=== PATIENT | female | born 1995 | race Caucasian/White ===

== ENCOUNTER 2019-03-10 09:35 | Inpatient (IN) | payer OTHER, SELFPAY ==
--- NOTE | 2019-03-09 08:28 | PDOC.FPROB ---
FMR OB H&P: HPI - History of Present Illness Chief Complaint: Scheduled repeat LTCS History of Present Illness: 24 yo with prior history of C/S here for scheduled repeat at 39.3w. Primary Care Physician: Aurora Nicholas MD, PGY-3 FMR OB H&P: Current - Care : 2 Para: 1001 Gestational age: 39.3w Due date: 03/14/2019 Dating Criteria: 15.0w sono - OB Labs Blood type: O RH: positive Antibody Screen: negative HIV: negative RPR: negative HepBsAg: negative Rubella: immune Gonorrhea: negative Chlamydia: negative Pap Smear: normal per patient 1 hour gtt: 94 - First Trimester Ultrasound First trimester: 15.0w at outside facility - Anatomy Survey Anatomy survey: WNL, female fetus, posterior placenta FMR OB H&P: History - Past Medical History PMH: None - OB History OB History: Prior C/S x1 in 2016 for "low fluid" in [place] - Surgical History Sx History: Prior C/S x1 for "low fluid" - Social History Social History: Denies t/a/d TB exposure, negative screen at [facility] - Family History Family History: Mother with DM, Grandmother with HTN, DM FMR OB H&P: Medications - Current Home Medications: Medication Instructions Recorded Confirmed Type Vitamin 1 tab PO DAILY 03/09/19 03/10/19 History Allergies/Adverse Reactions: Allergies Allergy/AdvReac Type Severity Reaction Status Date / Time No Known Allergies Allergy Verified 03/10/19 10:46 FMR OB H&P: ROS - Review of Systems General: denies: fever/chills, weight/appetite/sleep changes Eyes: denies: eye pain, vision changes ENT: denies: nasal congestion, rhinorrhea Cardiovascular: denies: chest pain, palpitation Respiratory: denies: cough, congestion, shortness of breath Gastrointestinal: denies: abdominal pain, cramping, nausea, vomiting, diarrhea Genitourinary (Female): denies: dysuria, hematuria Musculoskeletal: denies: stiffness, swelling Integumentary: denies: rash, lesions FMR OB H&P: Physical Exam - Physical Exam General: NAD, awake, alert and oriented HEENT: normocephalic and atraumatic, MMM Neck: supple, trachea midline Chest: non-tender to palpation Heart: RRR, normal S1/S2 General: CTAB, no respiratory distress Abdomen: soft, gravid, non-tender Musculoskeletal: normal gait and station, pulses present Skin: no rash, good tugor Psychiatric: intact recent and remote memory, normal mood and affect FMR OB H&P: A/P - Problem List (1) Term Current Visit: No Status: Acute Code(s): Z34.90 - ENCNTR FOR SUPRVSN OF NORMAL , UNSP, UNSP TRIMESTER (2) History of delivery Current Visit: No Status: Acute Code(s): Z98.891 - HISTORY OF UTERINE SCAR FROM PREVIOUS SURGERY Disposition: 24 yo at 39.3w here for scheduled repeat C/S. Declined TOLAC. 1. Prior C/S 2. Short interpregnancy interval 3. Travel to [place] - TB screen neg at HD 4. H/o chicken pox 5. Reports normal pap last year Apr 2018 Will proceed with C/S Discussion: Date/Time: 03/09/19826 This H&P was discussed with [] and [] who agree with the above documentation and plan.
[~2019-03-10 09:35] MED LIST: Bicitra 30 ML UDCUP PO SCH; CEFAZOLIN 2 GM in Premix Bag 1 BAG IVPB SCH; Ondansetron PF 4 MG/2 ML Vial IVP PRN; Promethazine HCl 25 MG/ML VIAL IM PRN; hydrALAZINE 20 MG/ML VIAL SLOW IVP PRN
[2019-03-10 10:37] LABS: Hemoglobin 13.2 g/dL (12.0-16.0); Mean Corpuscular HGB CONC 33.5 g/dL (32.0-36.0); Mean Corpuscular Hemoglobin 31.7 pg (27.0-31.0); Mean Corpuscular Volume 94.8 fL (78.0-98.0); Mean Platelet Volume 8.9 fL (7.4-10.4); Platelet Count 147 thou/uL (130-400); RBC Distribution Width 12.8 % (11.5-14.5); Red Blood Cell (RBC) Count 4.16 mill/uL (4.20-5.40); White Blood Cell (WBC) Count 8.8 thou/uL (4.8-10.8)
[2019-03-10 10:41] VITALS: BMI 32.9
[2019-03-10] MEDS ORDERED: Ketorolac Tromethamine 30 MG/ML VIAL ONE ×2 (11:05→13:43)
[2019-03-10] MEDS ORDERED: Ondansetron PF 4 MG/2 ML Vial ONE ×2 (11:05→12:03)
[2019-03-10] MEDS ORDERED: ePHEDrine 50 MG/ML VIAL ONE (11:05)
[2019-03-10 11:17] LABS: HBSAg Index 0.26 S/CO (0-0.99); Hep B Surf Ag Non-Reactive S/CO (NonReactive); Syphilis Antibody Nonreactive (Nonreactive); Syphilis Antibody Index 0.04 S/CO (<1.00 Non-Reactive)
[2019-03-10] MEDS ORDERED: CEFAZOLIN 2 GM in Premix Bag 1 BAG IVPB SCH (11:45)
[2019-03-10] MEDS ORDERED: Oxytocin 10 UNITS/ML VIAL ONE (12:03)
[2019-03-10] MEDS ORDERED: MORPHINE 5 MG/10 ML PF VIAL ONE (12:03)
[2019-03-10] MEDS ORDERED: Phenylephrine HCL 10 MG/ML VIAL ONE (12:03)
--- NOTE | 2019-03-10 12:28 | PDOC.EVN ---
Event Note - Event Note Event Note: Reviewed H&P and seen with Dr. Nicholas. Previous x 1 here for scheduled repeat. Discussed risk of repeat (Dr. Nicholas) and plan to proceed.
[2019-03-10] MEDS ORDERED: ePHEDrine/0.9% NaCl/PF SYRINGE 50 mg/10 ml ONE (12:30)
[2019-03-10] MEDS ORDERED: NS / Oxytocin 40 units/1000ml 1,000 ML ONE (14:59)
--- NOTE | 2019-03-10 15:05 | PDOC.OPDEL ---
OB Operative/Delivery Note Delivery Dr/Surgeon: Marleni Pre-Delivery Diagnosis: scheduled section Procedure/Post Delivery Dx: repeat low transverse CS Weeks gestation: 39 (.3) Anesthesia: epidural - Findings A Sex: female - 1 min: 8 - 5 min: 9 - Additional Findings/Plan Placenta delivered: manual removal findings: low transverse hysterotomy without extension Estimated blood loss: 1215 QBL Compilations/Other Findings: Attending Surgeon: Dr. James Carrillo Procedure: Repeat low transverse caesarean section Preoperative Diagnosis: 1)Term intrauterine 2)Previous Postoperative Diagnosis: 1)same as above Anesthesia: spinal Indications: The patient is a 24 year old female at 39.3 weeks gestation who presents for a repeat scheduled . Procedure in Detail: After risks, benefits, and alternatives were explained to the patient, she gave informed consent. Pre-operative antibiotics included Cefazolin 2 gram IV. The patient was taken to the operating room and spinal anesthesia was initiated. She was placed in the supine position with a left tilt and prepped and draped in usual sterile fashion. A Pfannenstiel incision was made with a scalpel and carried down to the level of the fascia which was sharply nicked. The fascial cut was extended bilaterally with Wharton sissors. The inferior and superior edges of the cut fascial edges were elevated with Shawna clamps and the underlying rectus muscles were sharply and bluntly dissected free. The recti were divided bluntly and retracted manually. The peritoneum was entered bluntly and retracted manually. Bladder blade was placed. A low transverse score was made with the scalpel and the uterus was entered in the midline bluntly. Clear fluid was seen. The hysterotomy was extended manually. The was noted to be vertex and delivered by fundal pressure. Mouth and nares were bulb suctioned. Cord clamped and cut and grossly normal male/female was handed to waiting nurse. Cord blood was obtained. Placenta was manually extracted, found to be intact with 3 vessel cord and discarded. The uterus was externalized and the endometrium was curetted with a dry lap. The bladder blade was replaced and the uterus was closed with a running locking 0-Vicryl followed by 3 #1 Chromic figure of 8 suture. Following this hemostasis was noted. The abdomen was irrigated with saline and suctioned free of clots. The uterus was internalized and the hysterotomy was again noted to be hemostatic. The fascia was closed with a running non-locking PDS suture. The subcutaneous tissue was irrigated and there were no bleeders. The skin was approximated with running subcuticular 3.0 on a raul needle and dermabond was placed. All counts were correct. The patient tolerated the procedure well and was taken to the recovery room in stable condition. QBL: 1215 ml Complications: None Specimens: Cord blood sent to lab for blood type Findings: Grossly normal female infant with Apgars of 8 and 9. Grossly normal placenta with 3 vessel cord discarded. Drains: Rangel to gravity draining clear urine Addendum - Attending - Attending Attestation Date/Time: 03/11/19 1335 I was present and scrubbed for the entire case. Wily-O used and ensured to be free of any omentum or bowel. 1-Monocryl for hysterotomy with several figure of 8's for hemostasis. Peritoneum closed with 3-0 vicryl and muscle reapproximated with mattress suture. Subcutaneous closure was interrupted with plain gut and skin with 4-0 monocryl in a subcuticular fashion.
[2019-03-10] MEDS ORDERED: diphenhydrAMINE 25 MG CAP PO PRN (15:59)
[2019-03-10] MEDS ORDERED: Adacel (T-DAP) 0.5 ML SYRINGE IM ONE (15:59)
[2019-03-10] MEDS ORDERED: Methylergonovine 0.2 MG TAB PO PRN (15:59)
[2019-03-10] MEDS ORDERED: NS / Oxytocin 40 units/1000ml 1,000 ML IV SCH (15:59)
[2019-03-10] MEDS ORDERED: Acetaminophen/Codeine 30-300mg Tablet PO PRN (15:59)
[2019-03-10] MEDS ORDERED: Misoprostol 200 MCG TAB PR PRN (15:59)
[2019-03-10] MEDS ORDERED: Hydrocerin (Eucerin) Cream 120 gm Jar TOP PRN (17:17)
[2019-03-10] MEDS ORDERED: Promethazine HCl 25 MG/ML VIAL IM PRN (17:17)
[2019-03-10] MEDS ORDERED: Naloxone HCl 0.4 mg/ml Vial IV PRN ×3 (17:17)
[2019-03-10] MEDS ORDERED: Ondansetron PF 4 MG/2 ML Vial IVP PRN (17:17)
[2019-03-10] MEDS ORDERED: Promethazine HCl 25 MG SUPP PR PRN (17:17)
[2019-03-10] MEDS ORDERED: NO PO,IM,IV OR SC NARCOTICS FOR 12HR EXCEPT BY ANESTHESIA PO SCH (17:17)
--- NOTE | 2019-03-10 17:36 | PDOC.EVN ---
Event Note - Event Note Event Note: 4 hr post op S: pt resting comfortably in bed, minimal pain, vaginal bleeding less than a period, well. feeling dizzy and nauseous O: NAD AOx3 HEENT NCAT CV RRR ABD NTTP EXT moves all 4 A: s/p rLTCS - routine post op care - zofran for N/V - ADAT
[2019-03-10] MEDS: diphenhydrAMINE 50 MG/ML VIAL IVP PRN (20:16)
[2019-03-10] MEDS: Ketorolac Tromethamine 30 MG/ML VIAL IVP PRN (20:21)
[2019-03-10] MEDS ORDERED: Ibuprofen 800 MG TAB PO SCH (22:00)
[2019-03-11] MEDS: Ketorolac Tromethamine 30 MG/ML VIAL IVP PRN (03:15)
[2019-03-11] MEDS: diphenhydrAMINE 50 MG/ML VIAL IVP PRN (03:21)
[2019-03-11 07:10] LABS: Hemoglobin 10.9 g/dL (12.0-16.0); Mean Corpuscular HGB CONC 33.8 g/dL (32.0-36.0); Mean Corpuscular Hemoglobin 31.9 pg (27.0-31.0); Mean Corpuscular Volume 94.5 fL (78.0-98.0); Mean Platelet Volume 8.8 fL (7.4-10.4); Platelet Count 146 thou/uL (130-400); RBC Distribution Width 12.6 % (11.5-14.5); Red Blood Cell (RBC) Count 3.42 mill/uL (4.20-5.40); White Blood Cell (WBC) Count 10.9 thou/uL (4.8-10.8)
--- NOTE | 2019-03-11 07:10 | PDOC.PP ---
Post Progress Note Post Day #: 1 Subjective: pt resting comfortably in bed with baby, , minimal pain and bleeding. tolerating PO well PO intake tolerated: yes Flatus: no Ambulation: yes Vital Signs (12 hours) Temp Pulse Resp BP Pulse Ox 03/11/19 04:20 97.7 F 58 L 18 108/53 L 03/11/19 00:08 98.2 F 56 L 18 117/53 L 99 03/10/19 19:55 98.2 F 54 L 18 116/53 L 97 Weight Weight 87.09 kg - Physical Examination General: NAD Cardiovascular: RRR Respiratory: clear to auscultation bilaterally Abdominal: + bowel sounds, no distention, appropriately TTP Skin: CS incision dry & intact, no rash Neurological: no gross focal deficits Psychiatric: normal affect Result Diagrams: 03/11/19 06:35 Additional Labs: Post Labs Blood Type O POSITIVE 03/10/19 10:44 Hep Bs Antigen Non-Reactive S/CO (NonReactive) 03/10/19 10:23 (1) History of delivery Code(s): Z98.891 - HISTORY OF UTERINE SCAR FROM PREVIOUS SURGERY Status: Acute (2) Term Code(s): Z34.90 - ENCNTR FOR SUPRVSN OF NORMAL , UNSP, UNSP TRIMESTER Status: Acute - Assessment/Plan s/p repeat rLTCS - routine care - scheduled ibuprofen, prn T3 for pain control - continue to encourage breast feeding - encourage ambulation and PO intake today Addendum - Attending - Attending Attestation Date/Time: 03/11/19 1105 I personally evaluated the patient and discussed the management with Dr. Willard. I agree with the History, Examination, Assessment and Plan documented above with any addition or exceptions noted below.
[2019-03-11] MEDS ORDERED: Polyethylene Glycol 3350 17 GM Packet PO PRN (08:10)
[2019-03-11] MEDS: Acetaminophen/Codeine 30-300mg Tablet PO PRN ×2 (11:12→22:18)
[2019-03-11] MEDS: Ibuprofen 800 MG TAB PO SCH ×2 (14:01→22:18)
[2019-03-12] MEDS: Ibuprofen 800 MG TAB PO SCH ×2 (05:33→13:39)
--- NOTE | 2019-03-12 07:15 | PDOC.PP ---
Post Progress Note Post Day #: 2 Subjective: Resting comfortably in bed, reports minimal pain and bleeding. would like to go home today. PO intake tolerated: yes Flatus: yes Ambulation: yes Vital Signs (12 hours) Temp Pulse Resp BP BP Pulse Ox 03/12/19 04:15 97.9 F 61 18 99/48 L 03/12/19 00:39 97.9 F 69 20 100/59 L 03/11/19 20:45 98.3 F 66 18 102/57 L 97 Weight Weight 87.09 kg - Physical Examination General: NAD Cardiovascular: no m/r/g, RRR Respiratory: clear to auscultation bilaterally Abdominal: + bowel sounds, appropriately TTP Skin: CS incision dry & intact Neurological: no gross focal deficits Result Diagrams: 03/11/19 06:35 Additional Labs: Post Labs Blood Type O POSITIVE 03/10/19 10:44 Hep Bs Antigen Non-Reactive S/CO (NonReactive) 03/10/19 10:23 (1) History of delivery Code(s): Z98.891 - HISTORY OF UTERINE SCAR FROM PREVIOUS SURGERY Status: Acute (2) Term Code(s): Z34.90 - ENCNTR FOR SUPRVSN OF NORMAL , UNSP, UNSP TRIMESTER Status: Acute - Assessment/Plan s/p repeat rLTCS - routine care - scheduled ibuprofen, prn T3 for pain control - continue to encourage breast feeding - most likely DC today Addendum - Attending - Attending Attestation Date/Time: 03/12/19 1156 I personally evaluated the patient and discussed the management with Dr. Willard. I agree with the History, Examination, Assessment and Plan documented above with any addition or exceptions noted below. D/c T3 if at all. Home today. Precautions discussed.
[2019-03-12] MEDS ORDERED: Docusate 100 MG CAP PO PRN (09:15)
[2019-03-12 11:29] VITALS: BP 115/57; TEMP 98.3
== END 2019-03-12 15:10 | disposition home or self-care (01) | DRG 788 ==
LOC: L&D 09:35 → 3SW 16:39
PROVIDERS: ADMIT Emergency Medicine; ATTEND Emergency Medicine
PROC: 10D00Z1 Extraction of Products of Conception, Low, Open Approach (ICD-10-PCS; principal; 2019-03-10)
DX: O34.211 Maternal care for low transverse scar from previous cesarean delivery (principal); Z3A.39 39 weeks gestation of pregnancy; Z37.0 Single live birth
CPT/HCPCS: 36415; 51702; 85027; 86780; 86850; 86900; 86901; 87340; 90715; J0690; J1200; J1885; J2274; J2370; J2405; J2590; J3490